=== PATIENT | female | born 1985 | race Hispanic/Latino ===

== ENCOUNTER 2020-04-23 10:55 | Emergency (ER) | payer SELFPAY ==
[2020-04-23 11:22] VITALS: BP 118/67; PULSE 82; RESP 16; TEMP 37.1; O2SAT 99
--- NOTE | 2020-04-23 11:33 | ED.EAR ---
HPI - Ear Problem General Chief complaint: Ear Stated complaint: ear pain Time Seen by Provider: 04/23/20 11:33 Source: patient Mode of arrival: ambulatory Limitations: no limitations History of Present Illness HPI Narrative: Talia Watkins is a 34 yo female with no PMH who is here with L ear pain. Started a few days ago; uses Q-tips but denies losing any of the cotton tip of the ear, has been swollen and more uncomfortable over the last 24 hours Related Data Allergies Allergy/AdvReac Type Severity Reaction Status Date / Time aspirin AdvReac Intermediate Nausea, Verified 04/23/20 11:30 vomiting and dizziness Review of Systems Review of Systems: Narrative: CONSTITUTIONAL: Denies fever, chills, sweats. EYES: Denies visual changes, redness, discharge. ENT: Denies rhinorrhea, congestion, sore throat, left otalgia. CARDIOVASCULAR: Denies chest pain, palpitations, edema. RESPIRATORY: Denies dyspnea, wheezing, cough GASTROINTESTINAL: Denies abdominal pain, nausea, vomiting, diarrhea. GENITOURINARY: Denies dysuria, hematuria, abnormal discharge SKIN: Denies rash or itching. NEUROLOGIC: Denies numbness, or focal weakness. PSYCHIATRIC: Denies anxiety or depression. PMFSH Past Medical History Medical History Hypertension during Family History Family History Other Heart disease Hypertension Social History Social History (Updated 04/23/20 @ 11:44 by Leena Figueroa CNP) Smoking status: Never smoker Alcohol intake: current Gender identity (if verbalized by the patient): Female Comments At time of signature, I agree with nursing past medical, surgical, social and family history. There is no relevant family history pertinent to the presenting complaint. Exam Narrative: Exam Narrative: GENERAL: This is a well-nourished, well-developed patient, in mild distress. HEAD: normocephalic, atraumatic. EYES: Sclera clear/white. Vision is grossly intact. EARS: External ears normal, auditory canals clear on the left -right ear swollen and erythematous, tender to touch, TMs normal without perforation. Hearing grossly intact. NOSE: External nose normal without nasal discharge, nares without redness, no rhinorrhea. THROAT: Mucous membranes moist, posterior pharynx NECK: Neck supple, non-tender CARDIOVASCULAR: Regular rate and rhythm without murmurs, gallops, or rubs. RESPIRATORY: Clear to auscultation. Breath sounds equal bilaterally. No wheezes, rales, or rhonchi. GASTROINTESTINAL: Abdomen soft, non-tender, SKIN: warm, intact with no suspicious lesions or rash, good texture and turgor. NEURO: awake, alert, and oriented to person, place and time. There were no obvious focal neurologic abnormalities. Steady gait EXTREMITIES: Normal range of motion. BACK: Nontender without deformity Course Course Emergency Course: Started on polymyxin eardrops discussed pain control with ibuprofen discussed not using Q-tips in ears Vital Signs Vital signs: Vital Signs Temperature 98.7 F 04/23/20 11:22 Pulse Rate 82 04/23/20 11:22 Respiratory Rate 16 04/23/20 11:22 Blood Pressure 118/67 04/23/20 11:22 Pulse Oximetry 99 04/23/20 11:22 Temperature 98.7 F 04/23/20 11:22 Pulse Rate 82 04/23/20 11:22 Respiratory Rate 16 04/23/20 11:22 Blood Pressure 118/67 04/23/20 11:22 Pulse Oximetry 99 04/23/20 11:22 Medical Decision Making Differential Diagnosis Differential Diagnosis: Otitis media versus otitis externa versus viral infection Vital Signs Vital Signs: Vital Signs Temperature 98.7 F 04/23/20 11:22 Pulse Rate 82 04/23/20 11:22 Respiratory Rate 16 04/23/20 11:22 Blood Pressure 118/67 04/23/20 11:22 Pulse Oximetry 99 04/23/20 11:22 Temperature 98.7 F 04/23/20 11:22 Pulse Rate 82 04/23/20 11:22 Respiratory Rate 16 04/23/20 11:22 Bl
== END 2020-04-23 11:50 | disposition home or self-care (01) ==
PROVIDERS: Emergency Provider Nurse Practitioner; PCP Obstetrics & Gynecology
DX: H65.02 Acute serous otitis media, left ear (principal)
CPT/HCPCS: 99213; G0463

== ENCOUNTER 2021-03-07 22:33 | Emergency (ER) | payer SELFPAY ==
--- NOTE | ~2021-03-07 | CT_ITS ---
EXAMINATION: CT abdomen pelvis wo con DATE: 03/08/2021 02:21 INDICATION: Left flank pain. TECHNIQUE: Computed tomography (CT) of the abdomen and pelvis was performed without intravenous contr ast. Automated exposure control and iterative reconstruction technique were employed. The dose-length product was 527.19 mGy-cm. COMPARISON: None. FINDINGS: The visualized portions of the lung bases demonstrate minimal atelectasis. No pleural effus ion. The heart size is normal. No pericardial effusion. The liver, gallbladder, spleen, pancreas, adr enal glands, and left kidney are normal. There is a 4 mm stone in right kidney. There is an intrauter ine device in expected position. There is a 13.2 cm cystic lesion of left ovary. There is a supraumbi lical ventral hernia containing fat. There are no dilated loops of bowel. The appendix is normal. The re is mild thoracic spondylosis. IMPRESSION: 1. 13.2 cm cystic lesion of left ovary, most likely benign. Surgical evaluation is recommended. 2. Supraumbilical ventral hernia containing fat. Reviewed, dictated and finalized at location A.
--- NOTE | ~2021-03-07 | US_ITS ---
EXAMINATION: US pelvic complete w TV DATE: 03/08/2021 05:34 INDICATION: Left flank pain. TECHNIQUE: Multiple transabdominal and transvaginal sonographic images of the pelvis were obtained. COMPARISON: CT abdomen and pelvis 03/08/2021 FINDINGS: TRANSABDOMINAL ULTRASOUND: The uterus measures 8.1 x 5.4 x 6.6 cm. There is no free fluid in the pelvis. TRANSVAGINAL ULTRASOUND: The endometrial complex measures 5 mm in thickness. There is an intrauterine device in expected posit ion. The right ovary measures 2.5 x 2.3 x 2.4 cm. The left ovary measures 4.8 x 3.6 x 4.0 cm. There i s 11.2 x 10.4 x 9.2 cm cyst likely arising from the left ovary. There is vascular flow in the ovaries . IMPRESSION: 1. 11.2 cm left ovarian cyst, most likely benign. Vascular flow is present in the left ovary. Surgica l evaluation is recommended. Reviewed, dictated and finalized at location A. IMPRESSION: 1. 11.2 cm left ovarian cyst, most likely benign. Vascular flow is present in t he left ovary. Surgical evaluation is recommended.
[2021-03-07 23:08] VITALS: BP 120/99; PULSE 81; RESP 18; TEMP 36.6; O2SAT 100
[2021-03-07 23:34] LABS: Basophils Percent Auto 0.3 % (0.2-1.2); Eosinophils Absolute Auto 0.1 K/mm3 (0-0.3); Eosinophils Percent Auto 1.3 % (0-4.4); Hematocrit 42.8 % (37.0-47.0); Hemoglobin 13.5 g/dL (12.0-15.0); Immature Granulocyte Absolute 0.01 K/mm3 (0.00-0.031); Immature Granulocyte Percent A 0.1 % (0-0.5); Lymphocytes Absolute Auto 2.12 K/mm3 (0.9-3.2); Lymphocytes Percent Auto 26.7 % (18.3-44.2); Mean Corpuscular HGB Conc 31.5 g/dl (32-36); Mean Corpuscular Hemoglobin 28.8 pg (26-34); Mean Corpuscular Volume 91.5 fl (80-100); Mean Platelet Volume 10.6 fl (7.4-10.4); Monocytes Absolute Auto 0.6 K/mm3 (0.1-0.6); Monocytes Percent Auto 6.9 % (2.6-8.5); Neutrophils Absolute Auto 5.1 K/mm3 (1.3-6.7); Neutrophils Percent Auto 64.7 % (45.5-73.1); Platelet Count Result 327 k/mm3 (150-375); Red Blood Count 4.68 M/mm3 (4.2-5.4); Red Cell Distribution Width 13.5 % (11.5-14.5); White Blood Count 7.9 K/mm3 (4.5-10.0)
[2021-03-07 23:46] LABS: Alanine Aminotransferase 24 U/L (4-35); Albumin Level 4.4 g/dL (3.5-5.1); Alkaline Phosphatase 72 U/L (38-126); Anion Gap 12 mmol/L (8-16); Aspartate Amino Transferase 46 U/L (14-36); Bilirubin,Total 0.4 mg/dL (0.2-1.3); Blood Urea Nitrogen 11 mg/dL (7-17); Calcium 9.6 mg/dL (8.4-10.2); Carbon Dioxide 23 mmol/L (22-30); Chloride 106 mmol/L (98-107); Estimated Glomerular Filt Rate > 60; Glucose 112 mg/dL (65-105); Lipase 46 U/L (23-300); Potassium 4.2 mmol/L (3.4-5.0); Sodium 141 mmol/L (137-145)
[2021-03-07 23:53] LABS: Add Urine Microscopic? YES; Appearance Urine Cloudy (Clear); Bacteria Urine Trace /hpf; Bilirubin Urine Negative (Negative); Color Urine Yellow (Yellow); Glucose Urine UA Negative (Negative); Ketones Urine Negative (Negative); Leukocyte Esterase Ur 1+ LEU/UL (Negative); Mucus Urine Rare /lpf; Nitrate Urine Negative (Negative); Protein Urine 2+ mg/dL (Negative); RBC Urine 0-2 /hpf (0-2); Specific Grav Ur 1.028 (1.001-1.035); Squamous Epithelial Cell Urine Many /hpf (Few); Urobilinogen Urine Negative mg/dL (<2.0)
[2021-03-07 23:55] LABS: Blood Urine Negative (Negative)
[2021-03-08 00:54] VITALS: BP 128/69; PULSE 77; O2SAT 97
[2021-03-08] MEDS: MORPHINE SULFATE (*CRX) 4 MG/ML INJ IV PUSH ×2 (02:12→05:37)
[2021-03-08 03:34] VITALS: BP 106/62; PULSE 78; RESP 14; O2SAT 98
--- NOTE | 2021-03-08 04:25 | ED.ABDPAIN ---
HPI - Abdominal Pain General Chief Complaint: Urogenital-Female <Marciano Pelayo MD - Last Filed: 03/08/21 06:41> Stated Complaint: kidney stones <Marciano Pelayo MD - Last Filed: 03/08/21 06:41> Time Seen by Provider: 03/08/21 01:22 <Marciano Pelayo MD - Last Filed: 03/08/21 06:41> History of Present Illness HPI narrative: Patient is a 35-year-old female who presents ER with concerns for kidney stones. Reports she is having intermittent pain in her lower abdomen that radiates into her left flank. Worsening today. No aggravating alleviating factors. Denies fevers or chills or sweats. Has no urinary frequency urgency or dysuria. Mild nausea with some vomiting today. <Marciano Pelayo MD - Last Filed: 03/08/21 06:41> Related Data Allergies/Adverse Reactions: Allergies Allergy/AdvReac Type Severity Reaction Status Date / Time aspirin AdvReac Intermediate Nausea, Verified 03/08/21 00:59 vomiting and dizziness <Marciano Pelayo MD - Last Filed: 03/08/21 06:41> Review of Systems Review of Systems: All systems reviewed & are unremarkable except as noted in HPI and below <Marciano Pelayo MD - Last Filed: 03/08/21 06:41> Constitutional: Constitutional: Denies chills and Denies fever(s) <Marciano Pelayo MD - Last Filed: 03/08/21 06:41> Gastrointestinal: Gastrointestinal: Reports abdominal pain, Denies constipation, Denies diarrhea and Reports vomiting <Marciano Pelayo MD - Last Filed: 03/08/21 06:41> Genitourinary: Genitourinary: Denies abnormal vaginal bleeding, Denies hematuria, Denies nocturia, Denies dysuria, Reports flank pain and Denies vaginal discharge <Marciano Pelayo MD - Last Filed: 03/08/21 06:41> 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 Hyperlipidemia Hypertension during Hypothyroidism Kidney stones Obesity PCOS (polycystic ovarian syndrome) Pelvic mass Vaginal delivery FIVE DELIVERIES 10/22/20031407 lbs.FStandard Vaginal DeliveryFull Term [facility]historical 11/16/20051407 lbs.MStandard Vaginal DeliveryFull Term BirthRegional-EpiduralMercy Health – The Jewish HospitalALEXIShistorical 10/14/20091407 lbs.FStandard Vaginal DeliveryFull Term BirthLocalMercy Health – The Jewish HospitalBRISAhistorical 12/01/20131407 lbs.MStandard Vaginal DeliveryFull Term BirthMercy Health – The Jewish HospitalULISEShistorical 10/05/2019133.44 lbs.11.5 oz.FStandard Vaginal DeliveryPremature BirthStHealthSouth [facility] <Marciano Pelayo MD - Last Filed: 03/08/21 06:41> Surgical History Surgical History: Surgical History No pertinent past surgical history <Marciano Pelayo MD - Last Filed: 03/08/21 06:41> Family History Family History: Family History Other Diabetes mellitus Heart disease Hypertension <Marciano Pelayo MD - Last Filed: 03/08/21 06:41> Social History Social History: Social History (Updated 03/08/21 @ 08:38 by Isaak Patino MD) Smoking status: Never smoker Alcohol intake: current Substance use: never Substance use type: does not use Living arrangements: with family Occupation/Education: unemployed Gender identity (if verbalized by the patient): Female Sexual Orientation (if Verbalized by the Patient): Straight or Heterosexual Spiritual care concerns: No Agree to blood products: Yes <Marciano Pelayo MD - Last Filed: 03/08/21 06:41> Course Reevaluation(s) Reevaluation #1: Patient still with mild abdominal tenderness and continued referred pain to left fla
[2021-03-08 05:40] VITALS: BP 136/79; PULSE 68; RESP 14; O2SAT 99
[2021-03-08 08:15] VITALS: BP 122/71; PULSE 78; RESP 20; O2SAT 99
--- NOTE | 2021-03-08 08:16 | WPDCN ---
Assessment and Plan Assessment and plan (1) Ovarian torsion, acquired: Code(s): N83.519 - Torsion of ovary and ovarian pedicle, unspecified side Status: Acute (2) Pelvic mass: Code(s): R19.00 - Intra-abdominal and pelvic swelling, mass and lump, unspecified site Status: Acute (3) PCOS (polycystic ovarian syndrome): Code(s): E28.2 - Polycystic ovarian syndrome Status: Acute Additional Plan Patient has partial ovarian torsion with large pelvic mass 13 cm size and acute abdominal pain requiring morphine which only relieves pain to 8 out of 10 and is persistent Patient needs surgical intervention with possible salpingo-oophorectomy in a high risk facility in [place] HPI Data of Consult Date/Time: 03/08/21 08:16 Primary Care Provider: Isaak Patino MD Consult Narrative Narrative: Talia Randolph is a 35 year old female with h/o PCOS, IUD for control, HSV, GBS, MTHFR, hyperlipidemia, hypothyroidism, obesity and GERD presents to ER visit for ACUTE ABDOMINAL PAIN 10/10 requiring morphine for pain relief who was found to have 13cm cystic ovarian mass with septations with possible partial ovarian torsion. Review of Systems Review of Systems: All systems reviewed & are unremarkable except as noted in HPI and below Constitutional: Constitutional: Reports no additional constitutional complaints Eyes: Eyes: Reports no additional eye complaints ENT: Reports system reviewed and no additional complaints, except as documented Cardiovascular: Cardiovascular: Reports no additional cardiovascular complaints Respiratory: Respiratory: Reports no additional respiratory complaints Gastrointestinal: Gastrointestinal: Reports abdominal pain, Reports nausea and Reports vomiting Genitourinary: Genitourinary: Reports pelvic pain and Reports flank pain Musculoskeletal: Musculoskeletal: Reports no additional musculoskeletal complaints Integumentary/Breasts: Skin/Breast: Reports system reviewed and no additional complaints, except as docu Neurologic: Reports system reviewed and no additional complaints, except as documented Psychiatric: Psychiatric: Reports no additional psychiatric complaints Endocrine: Endocrine: Reports no additional endocrine complaints Hematologic/Lymphatic: Hematologic/Lymphatic: Reports no additional hematologic/lymphatic complaints Allergic/Immunologic: Allergic/Immunologic: Reports no additional allergic/immunologic complaints [facility] Past Medical History Medical History (Updated 03/08/21 @ 08:37 by Isaak Patino MD) Encounter for insertion of ParaGard IUD GBS (group B streptococcus) infection 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 Hyperlipidemia Hypertension during Hypothyroidism Kidney stones Obesity PCOS (polycystic ovarian syndrome) Pelvic mass Vaginal delivery FIVE DELIVERIES 10/22/20031407 lbs.FStandard Vaginal DeliveryFull Term [facility]SC[facility] ([facility]historical 11/16/20051407 lbs.MStandard Vaginal DeliveryFull Term BirthRegional-EpiduralWayne Healthcare Main CampusALEXIShistorical 10/14/20091407 lbs.FStandard Vaginal DeliveryFull Term BirthLocalWayne Healthcare Main CampusBRISAhistorical 12/01/20131407 lbs.MStandard Vaginal DeliveryFull Term BirthWayne Healthcare Main CampusULISEShistorical 10/05/2019133.44 lbs.11.5 oz.FStandard Vaginal DeliveryPremature BirthStAbrazo [facility] Campus Surgical History Surgical History No pertinent past surgical history Family History Family History Other Diabetes mellitus Heart disease Hypertension Social History Social History (Updated 03/08/21 @ 08:38 by Isaak Patino MD) Smoking status: Never smoker Alcohol intake: current Substance use: never
[2021-03-08] MEDS: MORPHINE SULFATE (*CRX) 4 MG/ML INJ (10:13)
[2021-03-08 10:17] VITALS: BP 128/69; PULSE 80; RESP 18; O2SAT 99
[2021-03-08 11:00] VITALS: BP 122/78; PULSE 78; RESP 18; O2SAT 99
== END 2021-03-08 11:02 | disposition short-term general hospital (02) ==
PROVIDERS: Emergency Medicine; Emergency Provider Emergency Medicine; PCP Obstetrics & Gynecology
DX: N83.519 Torsion of ovary and ovarian pedicle, unspecified side (principal); N94.89 Other specified conditions associated with female genital organs and menstrual cycle; E28.2 Polycystic ovarian syndrome; E78.5 Hyperlipidemia, unspecified; E03.9 Hypothyroidism, unspecified; K21.9 Gastro-esophageal reflux disease without esophagitis; E66.9 Obesity, unspecified; E72.12 Methylenetetrahydrofolate reductase deficiency; Z97.5 Presence of (intrauterine) contraceptive device; Z87.442 Personal history of urinary calculi; K43.9 Ventral hernia without obstruction or gangrene
CPT/HCPCS: 36415; 74176; 76830; 76856; 80053; 81001; 81025; 83690; 85025; 87086; 87088; 96374; 96376; 99285; J2270

== ENCOUNTER 2021-08-26 09:07 | Emergency (ER) | payer BC, SELFPAY ==
--- NOTE | 2021-08-26 09:15 | ED.URI ---
HPI - URI/Sore Throat General Chief Complaint: Ear Stated Complaint: Ear Pain Time Seen by Provider: 08/26/21 09:15 Source: patient, RN notes reviewed and old records reviewed Mode of arrival: ambulatory Limitations: no limitations History of Present Illness HPI Narrative: 35-year-old female presents to the [facility] with complaints of RIGHT ear pain for for the last couple of days. Has been using Q-tips. Denies fevers, sinus symptoms, chest pain, abdominal pain. No nausea vomiting or diarrhea. No sick contacts Offered program analyst, patient declined wanted to use her daughter MD elicited complaint: other (Ear pain) Related Data Allergies Allergy/AdvReac Type Severity Reaction Status Date / Time aspirin AdvReac Intermediate Nausea, Verified 08/26/21 09:19 vomiting and dizziness Review of Systems Review of Systems: All systems reviewed & are unremarkable except as noted in HPI and below Constitutional: Constitutional: Reports no additional constitutional complaints, Denies chills and Denies fever(s) Eyes: Eyes: Reports no additional eye complaints and Denies change in vision ENT: Reports as per HPI Comments: Ear pain Cardiovascular: Cardiovascular: Reports no additional cardiovascular complaints and Denies chest pain Respiratory: Respiratory: Reports no additional respiratory complaints, Denies cough, Denies dyspnea and Denies wheezing Gastrointestinal: Gastrointestinal: Reports no additional gastrointestinal complaints, Denies abdominal pain, Denies nausea and Denies vomiting Musculoskeletal: Musculoskeletal: Reports no additional musculoskeletal complaints Integumentary/Breasts: Skin/Breast: Reports system reviewed and no additional complaints, except as docu Neurologic: Reports system reviewed and no additional complaints, except as documented Psychiatric: Psychiatric: Reports no additional psychiatric complaints Allergic/Immunologic: Allergic/Immunologic: Reports no additional allergic/immunologic complaints ON LICENSE OF [facility] Past Medical History Medical History (Updated 08/26/21 @ 09:30 by Naz Gunderson) Encounter for insertion of ParaGard IUD GBS (group B streptococcus) infection 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 Hyperlipidemia Hypertension during Hypothyroidism Kidney stones Obesity PCOS (polycystic ovarian syndrome) Pelvic mass Vaginal delivery FIVE DELIVERIES 10/22/20031407 lbs.FStandard Vaginal DeliveryFull Term BirthSC[facility]historical 11/16/20051407 lbs.MStandard Vaginal DeliveryFull Term BirthQuorum Health-EpiduralKettering Health Behavioral Medical CenterALEXIShistorical 10/14/20091407 lbs.FStandard Vaginal DeliveryFull Term BirthLocalKettering Health Behavioral Medical CenterBRISAhistorical 12/01/20131407 lbs.MStandard Vaginal DeliveryFull Term BirthKettering Health Behavioral Medical CenterULISEShistorical 10/05/2019133.44 lbs.11.5 oz.FStandard Vaginal DeliveryPremature BirthSt. [facility] IPY Surgical History Surgical History No pertinent past surgical history Family History Family History Other Diabetes mellitus Heart disease Hypertension Social History Social History Smoking status: Never smoker Alcohol intake: current Substance use: never Substance use type: does not use Gender identity (if verbalized by the patient): Female Sexual Orientation (if Verbalized by the Patient): Straight or Heterosexual Spiritual care concerns: No Agree to blood products: Yes Comments At the time of my signature, I reviewed and agree with the nursing past medical, surgical, social, and family history. There is no relevant family history pertinent to the patient complaint. Exam Const: General: healthy appearing, no acute distress and
[2021-08-26 09:18] VITALS: BP 130/74; PULSE 68; RESP 16; TEMP 37.2; O2SAT 100
[2021-08-26 09:20] VITALS: BP 130/74; PULSE 68; RESP 16; TEMP 37.2; O2SAT 100
== END 2021-08-26 09:37 | disposition home or self-care (01) ==
PROVIDERS: Emergency Provider Nurse Practitioner
DX: S00.411A Abrasion of right ear, initial encounter (principal); X58.XXXA Exposure to other specified factors, initial encounter; E78.5 Hyperlipidemia, unspecified; E28.2 Polycystic ovarian syndrome; E03.9 Hypothyroidism, unspecified; E66.9 Obesity, unspecified; Z68.37 Body mass index [BMI] 37.0-37.9, adult
CPT/HCPCS: 99213; G0463

== ENCOUNTER 2024-01-19 11:11 | Emergency (ER) | payer BC, SELFPAY ==
[2024-01-19 11:19] VITALS: BP 132/79; PULSE 75; RESP 16; TEMP 36.8; O2SAT 98
--- NOTE | 2024-01-19 11:20 | ED.SKABFB ---
HPI - Skin/Abscess/Foreign Bdy General Chief complaint: Skin/Abscess/Foreign Body Stated complaint: Rash Time Seen by Provider: 01/19/24 11:21 Source: patient and family Mode of arrival: ambulatory Limitations: no limitations History of Present Illness HPI narrative: 38 yo F presents with concern for poison becka. Last week doing yard work. Broke out in rash to bilateral arms. Now has to trunk, legs, perineal area. has tried benadryl cream and zyrtec without relief. all systems reviewed and negative except as noted above. Related Data Home Medications Medication Instructions Recorded Confirmed vitamin with calcium 1 tablet PO DAILY 01/19/24 01/19/24 no.72-iron 27 mg-folic acid 1 mg tablet (WesTab Plus) Allergies Allergy/AdvReac Type Severity Reaction Status Date / Time aspirin AdvReac Intermediate Nausea, Verified 01/19/24 11:16 vomiting and dizziness Review of Systems Review of Systems: CONSTITUTIONAL: Denies fever, chills, or sweats. EYES: Denies visual changes, redness, or discharge. ENT: Denies rhinorrhea, congestion, sore throat, or otalgia. CARDIOVASCULAR: Denies chest pain, palpitations, or edema. RESPIRATORY: Denies cough or dyspnea. GASTROINTESTINAL: Denies abdominal pain, nausea, vomiting, or diarrhea. GENITOURINARY: Denies dysuria or hematuria. SKIN: Reports itchy rash, concern for poison becka. MUSCULOSKELETAL: Denies back pain, joint pain, or myalgia. NEUROLOGIC: Denies headache, numbness, or weakness. PSYCHIATRIC: Denies anxiety or depression. All other systems reviewed are negative, except as documented in HPI. 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 Hyperlipidemia Hypertension during Hypothyroidism Kidney stones Obesity PCOS (polycystic ovarian syndrome) Pelvic mass Vaginal delivery FIVE DELIVERIES 10/22/20031407 lbs.FStandard Vaginal DeliveryFull Term BirthSStr[facility])historical 11/16/20051407 lbs.MStandard Vaginal DeliveryFull Term BirthAdventhealth-EpiduralC[facility] Clinic [facility] HospitalXIistorical 10/14/20091407 lbs.FStandard Vaginal DeliveryFull Term BirthLocalGatLos Alamos Medical CenterBRISAhistorical 12/01/20131407 lbs.MStandard Vaginal DeliveryFull Term BirthBarney Children'S Medical CenterULISEShistorical 10/05/2019133.44 lbs.11.5 oz.FStandard Vaginal DeliveryPremature BirthSt. [facility] IPY Surgical History Surgical History No pertinent past surgical history Family History Family History Other Diabetes mellitus Heart disease Hypertension Social History Social History Smoking status: Never smoker Alcohol intake: current Substance use: never Substance use type: does not use Living arrangements: with family Occupation/Education: unemployed Gender identity (if verbalized by the patient): Female Sexual Orientation (if Verbalized by the Patient): Straight or Heterosexual Spiritual care concerns: No Agree to blood products: Yes Comments At time of signature, agree with nursing past medical, surgical, social and family history. There is no relevant family history pertinent to the presenting complaint. Exam Narrative: GENERAL: This is a well-nourished, well-developed patient, in no apparent distress. HEAD: normocephalic, atraumatic. EYES: PERRL. Sclera clear/white. Vision is grossly intact. EARS: External ears normal NOSE: External nose normal NECK: Neck supple, non-tender without lymphadenopathy, masses or thyromegaly. CARDIOVASCULAR: Regular rate and rhythm wit
== END 2024-01-19 11:35 | disposition home or self-care (01) ==
PROVIDERS: Emergency Provider Nurse Practitioner Family; PCP Physician Assistant
DX: L25.5 Unspecified contact dermatitis due to plants, except food (principal); E78.5 Hyperlipidemia, unspecified; E03.9 Hypothyroidism, unspecified; E66.9 Obesity, unspecified; Z68.41 Body mass index [BMI] 40.0-44.9, adult; E28.2 Polycystic ovarian syndrome
CPT/HCPCS: 99213; G0463